=== PATIENT | female | born 1940 | race Caucasian/White ===

== ENCOUNTER 2024-06-17 06:13 | Day surgery (SDC) | payer MEDICARE, OTHER, SELFPAY ==
[2024-06-17] VITALS (10 sets, daily range): BP systolic 132–170; BP diastolic 69–81; BMI 31.6
[2024-06-17 08:36] LABS: Glucose - Point of Care 141 mg/dl (70-99)
[2024-06-17] MEDS: TYLENOL 1000 MG PO (08:45)
[2024-06-17] MEDS: CELEBREX 200 MG PO (08:45)
[2024-06-17] MEDS: NORMOSOL-R/PLASMALYTE-A 1000 IV (08:46)
[2024-06-17 08:52] LABS: Hematocrit 35.1 % (37.0-47.0); Hemoglobin 11.3 g/dL (12.0-16.0)
[2024-06-17 09:10] LABS: Blood Urea Nitrogen 26 mg/dl (7-17); Carbon Dioxide 25 mmol/L (22-30); Chloride 106 mmol/L (98-107); Estimated Creatinine Clearance 62 ml/min; Glucose 135 mg/dl (70-99); Potassium 4.3 mmol/L (3.5-5.1); Sodium 143 mmol/L (135-145); eGFR > 60.00
[2024-06-17 13:34] LABS: Glucose - Point of Care 157 mg/dl (70-99)
[2024-06-17] MEDS: TYLENOL 650 MG PO (14:46)
[2024-06-17] MEDS: ROXICODONE 5 MG PO (14:47)
== END 2024-06-17 15:16 | disposition home or self-care (01) ==
LOC: SDS 06:13
PROVIDERS: Anesthesiology; ATTENDING PHYSICIAN Orthopaedic Surgery
DX: S42.292A Other displaced fracture of upper end of left humerus, initial encounter for closed fracture (principal); X58.XXXA Exposure to other specified factors, initial encounter
CPT/HCPCS: 24515; 73060; 76000; 80048; 82962; 85014; 85018; 93005; C1713

== ENCOUNTER 2024-07-14 09:33 | Emergency (ER) | payer MEDICARE, OTHER, SELFPAY ==
[2024-07-14 09:42] VITALS: BP 165/98
--- NOTE | 2024-07-14 10:26 | ED.CVA ---
History of Present Illness
General
Chief Complaint: CVA/TIA Symptoms
Time Seen by Provider: 07/14/24 10:09
Onset of Stroke Symptoms
Onset of symptoms known: No
Time pt last seen normal is known: No
History of Present Illness
History of Present Illness:
83-year-old female presents to the emergency department due to abnormal ophthalmologic exam. The patient notes she has had intermittent visual abnormalities for the past month or for, these abnormalities include occasional blurriness of her left
temporal visual field, no gross vision loss. She saw her stitcher special machine this morning where retinal exam was concerning for 2 subacute retinal artery occlusions and she was sent to the emergency department for further workup. She denies any speech
difficulty, extremity paresthesias, extremity weakness, chest pain, or shortness of breath. No prior history of CVA
Review of Systems
Review of Systems
Allergies reviewed?: Yes
All Other Systems: ROS reviewed and negative except as documented in HPI and ROS
Phy Exam
Physical Exam
Physical Exam:
GEN: Well appearing, NAD, WDWN
HEENT: Oral mucosa moist, no scleral icterus, no nasal congestion
Cardiac: Regular rate
Lung: No respiratory distress, no tachypnea
MSK: No gross deformity or injuries
Skin: Good color, no pallor or jaundice, no rashes
Neuro: AO x3; CN II-XII grossly intact. BUE strength 5/5 in all velazquez, sensation intact and symmetric. BLE strength 5/5 in all velazquez, sensation intact and symmetric, visual velazquez intact x 4 bilaterally and symmetric
Psych: Calm, cooperative
Course
Orders/Labs/Results
Orders:
Orders
07/14/24 09:45
CT Head W/o Iv Contrast Urgent
Comment:
Reason For Exam: possible retinal emboli per eye dr
07/14/24 10:22
Complete Blood Count/With Diff Urgent
Comprehensive Metabolic Panel Urgent
US Cerebrovascular Urgent
Comment:
Reason For Exam: retinal artery occlusion
Abnormal Lab Results
07/14/24
10:22
MCHC 31.7 L g/dL
(33.0-37.0)
Absolute Monos (auto) 0.7 H 10^3/uL
(0.1-0.6)
Lymphocytes % 15.2 L %
(20.5-51.1)
BUN 20 H mg/dl
(7-17)
Glucose 119 H mg/dl
(70-99)
Alkaline Phosphatase 133 H U/L
(38-126)
07/14/24 10:22
07/14/24 10:22
Vital Signs
Initial and Last Documented VS:
Initial Vital Signs
Temp Pulse Resp BP Pulse Ox
97.7 F 69 16 165/98 98
07/14/24 09:42 07/14/24 09:42 07/14/24 09:42 07/14/24 09:42 07/14/24 09:42
Last Documented Vital Signs
Temp Pulse Resp BP Pulse Ox
97.7 F 73 20 166/83 95
07/14/24 09:42 07/14/24 11:55 07/14/24 11:55 07/14/24 11:55 07/14/24 11:55
MDM/Problems Addressed
MDM/Problems Addressed:
Carotid Doppler study unremarkable for significant plaque buildup. As these retinal artery occlusions are felt to be subacute based on the duration of her symptoms there is no indication for inpatient mission, will start on antiplatelets discharged
to primary care follow-up for outpatient brain MRI as well as Holter monitor and TTE
*Critical Care Note
Total Time (30-74mins, 75-104mins- exclusive of procedures): Not Applicable
ED Attending Note
-
Portions of this chart may have been created with voice recognition software.� Occasional wrong word or��sound alike� substitutions may have occurred due to the inherent limitations of voice recognition software.
Discharge Plan
Departure
Patient Disposition: Home (Routine Discharge)
Date of Disposition: 07/14/24
Time of Disposition: 11:49
Patient with high blood pressure during this ER visit?: No
Discharge Problem:
Retinal artery occlusion, branch
Instructions: Stroke
Prescriptions:
No Action
rosuvastatin 5 MG tablet
10 mg PO QPM
cholecalciferol (vitamin D3) [Vitamin D3] 50 mcg (2,000 unit) Capsule
50 mcg PO DAILY
glimepiride 4 mg Tablet
4 mg PO DAILY
naproxen sodium [Aleve] 220 mg Capsule
220 mg PO BID PRN (Reason: pain) Qty: 1 0RF
Rx Instructions:
*TAKE WITH FOOD*
ascorbic acid (vitamin C) [Vitamin C] 1,000 mg Tablet
1,000 mg PO DAILY
levothyroxine [Levoxyl] 100 mcg Tablet
100 mcg PO DIRECTED
Rx Instructions:
Mon, Tue, Thur, Fri, Sat
lorazepam 0.5 MG tablet
0.5 mg PO PRN PRN (Reason: anxiety)
Rx Instructions:
Home medication. --take nightly x 7 days, then as needed
Caution with Dilaudid - can cause drowsiness.
losartan 25 MG tablet
25 mg PO NOON
Rx Instructions:
Hold if systolic blood pressure <130 while on Dilaudid.
levothyroxine [Levoxyl] 150 mcg Tablet
150 mcg PO DAILY
Rx Instructions:
Wed, Sun;
coenzyme Q10 [CoQ-10] 100 mg Capsule
200 mg PO DAILY
Referrals:
Juan Pelaez MD [Active] -
Skylar Edge MD [Family Provider] -
Activity Restrictions/Additional Instructions:
Your vision abnormalities were caused by a stroke of the retina, also known as a retinal artery occlusion. We recommend you start on 81mg aspirin daily as a preventive measure.
You need to follow up with your primary care physician for an MRI of your brain; as well as with a colorectal surgeon for an echocardiogram and at home monitor technician
Interventions
Interventions:
*Risk Screen - Suicide Last Done: 07/14/24 09:42
*General Assessment Last Done: 07/14/24 10:18
*Neglect/Abuse Screening Last Done: 07/14/24 09:42
ED- Fall Risk Assessment Last Done: 07/14/24 10:18
*ED COVID-19 Vaccine History Last Done: 07/14/24 10:18
*Nursing Disposition Last Done: 07/14/24 12:18
ED- Pulmonary Assessment Last Done: 07/14/24 10:18
ED- Neurological Assessment Last Done: 07/14/24 10:18
ED- Cardiac Assessment Last Done: 07/14/24 10:18
Discharge Date and Time
Discharge Date/Time: 07/14/24 12:19
Print Language: TURKISH
[2024-07-14 10:34] LABS: % Basophils 0.8 % (0-2); % Eosinophils 2.3 % (0-6); % Immature Granulocytes 0.4 % (0-0.5); % Lymphocytes 15.2 % (20.5-51.1); % Monocytes 8.7 % (1.7-9.3); % Neutrophils 72.6 % (42.2-75.2); Absolute Basophils 0.1 10^3/uL (0-0.2); Absolute Eosinophils 0.2 10^3/uL (0-0.7); Absolute Lymphocytes 1.2 10^3/uL (1.2-3.4); Absolute Monocytes 0.7 10^3/uL (0.1-0.6); Absolute Neutrophils 5.6 10^3/uL (1.4-6.5); Hematocrit 38.5 % (37.0-47.0); Hemoglobin 12.2 g/dL (12.0-16.0); Mean Corp Hgb Conc. 31.7 g/dL (33.0-37.0); Mean Corpuscular Hgb 28.1 pg (27.0-31.0); Mean Corpuscular Volume 88.7 fL (81.0-99.0); Mean Platelet Volume 9.4 fL (7.4-10.4); Nucleated Red Blood Cells % 0 %; Platelet Count 306 10^3/uL (130-400); Red Blood Cell Count 4.34 10^6/uL (4.20-5.40); Red Cell Dist. Width 14.1 % (11.5-14.5); White Blood Cell Count 7.7 10^3/uL (4.8-10.8)
[2024-07-14 10:51] LABS: ALT (SGPT) 30 U/L (0-35); AST (SGOT) 28 U/L (14-36); Albumin 4.3 g/dl (3.5-5.0); Alkaline Phosphatase 133 U/L (38-126); Blood Urea Nitrogen 20 mg/dl (7-17); Calcium 9.3 mg/dl (8.4-10.2); Carbon Dioxide 28 mmol/L (22-30); Chloride 104 mmol/L (98-107); Glucose 119 mg/dl (70-99); Potassium 4.2 mmol/L (3.5-5.1); Sodium 142 mmol/L (135-145); Total Bilirubin 0.3 mg/dl (0.2-1.3); Total Protein 6.6 g/dl (6.3-8.2); eGFR > 60.00
[2024-07-14 11:55] VITALS: BP 166/83
== END 2024-07-14 12:19 | disposition home or self-care (01) ==
LOC: EMR 09:33
PROVIDERS: Physician Assistant; EMERGENCY PHYSICIAN Emergency Medicine; FAMILY PHYSICIAN Internal Medicine
DX: H34.239 Retinal artery branch occlusion, unspecified eye (principal); I65.22 Occlusion and stenosis of left carotid artery
CPT/HCPCS: 70450; 80053; 85025; 93880; 99284

== ENCOUNTER → 2024-07-17 13:30 | Outpatient (REF) | payer MEDICARE, OTHER, SELFPAY | LOC: RCS 13:30 | PROVIDERS: ATTENDING PHYSICIAN Internal Medicine | DX: H34.9 Unspecified retinal vascular occlusion (principal); E11.9 Type 2 diabetes mellitus without complications; E78.5 Hyperlipidemia, unspecified; Z85.850 Personal history of malignant neoplasm of thyroid | CPT/HCPCS: 93306 ==

== ENCOUNTER → 2024-07-21 08:53 | Outpatient (REF) | payer MEDICARE, OTHER, SELFPAY | LOC: PAVMRI 08:53 | PROVIDERS: ATTENDING PHYSICIAN Internal Medicine | DX: H34.9 Unspecified retinal vascular occlusion (principal); E11.9 Type 2 diabetes mellitus without complications; E75.5 Other lipid storage disorders; Z85.850 Personal history of malignant neoplasm of thyroid; G31.89 Other specified degenerative diseases of nervous system; I67.89 Other cerebrovascular disease; I47.10 Supraventricular tachycardia, unspecified; I49.3 Ventricular premature depolarization; I49.1 Atrial premature depolarization | CPT/HCPCS: 70553; 93225; 93226; A9575 ==